=== PATIENT | female | born 1970 | race Caucasian/White ===

== ENCOUNTER 2023-02-23 05:06 | Emergency (ER) | payer OTHER ==
[~2023-02-23] VITALS: Ht 167.6 cm; Wt 72.6 kg
[2023-02-23 05:54] VITALS: BP_SYST 126; PULSE 82; RESP 19; TEMP 97.4; O2SAT 100
[2023-02-23 07:06] LABS: BASOPHILS # (AUTO) 0.1 K/uL (0.0-0.2); BASOPHILS % (AUTO) 1.1 % (0.0-2.0); EOSINOPHILS # (AUTO) 0.2 K/uL (0.0-0.4); HEMOGLOBIN 12.4 g/dL (12.0-16.0); LYMPHOCYTES # (AUTO) 1.7 K/uL (1.0-5.5); LYMPHOCYTES % (AUTO) 29.6 % (20.5-51.5); MEAN CORPUSCULAR HEMOGLOBIN 30 pg (27-31); MEAN CORPUSCULAR HGB CONC 33 % (32-36); MEAN CORPUSCULAR VOLUME 91 fL (79.0-98.0); MONOCYTES # (AUTO) 0.5 K/uL (0.0-1.0); MONOCYTES % (AUTO) 7.8 % (1.7-9.3); NEUTROPHILS # (AUTO) 3.4 K/uL (1.8-7.7); NEUTROPHILS % (AUTO) 58.5 % (40.0-70.0); PLATELET COUNT (AUTO) 301 K/uL (130-430); RED BLOOD CELL COUNT(AUTO) 4.19 MIL/uL (4.2-6.2); RED CELL DISTRIBUTION WIDTH 14.5 % (9.0-15.0); WHITE BLOOD COUNT (AUTO) 5.8 K/uL (4.8-10.8)
[2023-02-23 07:11] LABS: CALCIUM 8.2 mg/dL (8.4-11.0); CREATININE 0.87 mg/dL (0.55-1.30); POTASSIUM 4.3 mmol/L (3.5-5.1)
[2023-02-23 07:15] LABS: ALBUMIN 3.1 g/dL (3.4-4.8); TOTAL BILIRUBIN 0.2 mg/dL (0.0-1.0); TOTAL PROTEIN, SERUM 6.6 g/dL (6.4-8.3)
[2023-02-23 07:38] LABS: BILIRUBIN,URINE NEGATIVE (NEGATIVE); CLARITY/URINE Clear (CLEAR); COLOR,URINE YELLOW (YELLOW); GLUCOSE,URINE NEGATIVE (NEGATIVE); KETONES,URINE NEGATIVE (NEGATIVE); LEUKOCYTE ESTERASE ,URINE NEGATIVE (NEGATIVE); NITRITE, URINE NEGATIVE (NEGATIVE); PROTEIN URINE NEGATIVE (NEGATIVE); UROBILINOGEN,URINE 0.2 (0.2-1.0)
[2023-02-23 07:42] LABS: BLOOD, URINE TRACE (NEGATIVE)
[2023-02-23 08:00] LABS: BACTERIA,URINE RARE /HPF (None Seen); RBC,URINE 0-3 /HPF (0-3); WBC,URINE NONE SEEN /HPF (0-3)
[2023-02-23] MEDS ORDERED: TRAM50TA2 PO (10:07)
[2023-02-23] MEDS ORDERED: IBUP-1969 PO (10:07)
[2023-02-23 10:25] VITALS: BP_SYST 130; PULSE 81; RESP 18; TEMP 97.5; O2SAT 100
== END 2023-02-23 10:27 | disposition home or self-care (01) ==
LOC: SED 05:06
DX: S80.11XA Contusion of right lower leg, initial encounter (principal); S80.12XA Contusion of left lower leg, initial encounter; M79.671 Pain in right foot; R10.31 Right lower quadrant pain; Z79.899 Other long term (current) drug therapy; W19.XXXA Unspecified fall, initial encounter; Y93.89 Activity, other specified; Y92.89 Other specified places as the place of occurrence of the external cause; Y99.8 Other external cause status
CPT/HCPCS: 36415; 73590-TC; 76376; 80053; 81000; 82150; 83690; 85025; 99284

== ENCOUNTER 2023-03-19 20:55 | Emergency (ER) | payer OTHER ==
[~2023-03-19] VITALS: Ht 167.6 cm; Wt 72.6 kg
[~2023-03-19 20:55] MED LIST: IBUP-1969 PO; TRAM50TA2 PO
[2023-03-19 21:11] VITALS: BP_SYST 126; PULSE 100; RESP 20; TEMP 97.4; O2SAT 100
[2023-03-19] MEDS ORDERED: VANCOMYCIN HCL 1,000 MG in NS 250 ML IV ONE (22:15)
[2023-03-19] MEDS ORDERED: VANCOMYCIN HCL 1000 MG/VIAL IV ONE (22:20)
[2023-03-20] MEDS ORDERED: CEPH-548 PO ×2 (00:57→00:58)
[2023-03-20] MEDS ORDERED: SULF1TAB48 PO ×2 (00:57→00:58)
[2023-03-20 01:01] VITALS: BP_SYST 118; PULSE 86; RESP 18; TEMP 97.4; O2SAT 100
[2023-03-20] MEDS ORDERED: NAPR-1172 PO (01:03)
== END 2023-03-20 01:01 | disposition home or self-care (01) ==
LOC: SED 20:55
DX: L02.416 Cutaneous abscess of left lower limb (principal); L03.116 Cellulitis of left lower limb; Z79.899 Other long term (current) drug therapy
CPT/HCPCS: 99284; 96365; 10060; 96366; 87040; 36415; J3370

== ENCOUNTER 2023-03-21 22:27 | Emergency (ER) | payer OTHER ==
[~2023-03-21] VITALS: Ht 167.6 cm; Wt 72.6 kg
[~2023-03-21 22:27] MED LIST changes: +CEPH-548 PO; +NAPR-1172 PO; +SULF1TAB48 PO
[2023-03-21 22:31] VITALS: BP_SYST 116; PULSE 85; RESP 16; TEMP 97.1; O2SAT 99
[2023-03-21] MEDS ORDERED: KETOROLAC TROMETHAMINE 60 MG/2 ML VIAL IM ONE (23:00)
[2023-03-21] MEDS ORDERED: LIDOCAINE 1%, 20 ML MDV 20 ML ONE (23:42)
[2023-03-21] MEDS ORDERED: LIDOCAINE/EPI MPF 1%1:200000 30 ML VIAL INJ ONE (23:45)
[2023-03-22] MEDS ORDERED: CEPH250C PO (00:57)
[2023-03-22] MEDS ORDERED: SULF1TAB48 PO (00:58)
[2023-03-22 01:10] VITALS: BP_SYST 118; PULSE 82; RESP 16; TEMP 97.5; O2SAT 99
== END 2023-03-22 01:10 | disposition home or self-care (01) ==
LOC: SED 22:27
DX: Z48.00 Encounter for change or removal of nonsurgical wound dressing (principal); Z79.899 Other long term (current) drug therapy
CPT/HCPCS: 99283; 96372; J1885; J2001

== ENCOUNTER 2023-03-26 00:25 | Emergency (ER) | payer OTHER ==
[~2023-03-26] VITALS: Ht 167.6 cm; Wt 72.6 kg
[~2023-03-26 00:25] MED LIST changes: +CEPH250C PO
[2023-03-26 00:36] VITALS: BP_SYST 140; PULSE 100; RESP 18; TEMP 97.4; O2SAT 98
[2023-03-26 01:21] VITALS: BP_SYST 120; PULSE 78; RESP 18; TEMP 97.8; O2SAT 97
== END 2023-03-26 01:17 | disposition home or self-care (01) ==
LOC: SED 00:25
DX: S71.102A Unspecified open wound, left thigh, initial encounter (principal); Z79.899 Other long term (current) drug therapy; X58.XXXA Exposure to other specified factors, initial encounter; Y93.89 Activity, other specified; Y92.89 Other specified places as the place of occurrence of the external cause; Y99.8 Other external cause status
CPT/HCPCS: 99281

== ENCOUNTER 2023-09-18 22:01 | Emergency (ER) | payer MEDICAID, OTHER ==
[~2023-09-18] VITALS: Ht 165.1 cm; Wt 79.4 kg
[2023-09-18 22:25] VITALS: BP_SYST 121; PULSE 90; RESP 16; TEMP 97.9; O2SAT 97
[2023-09-19] MEDS ORDERED: NEO/3.5O OP (00:21)
[2023-09-19 00:32] VITALS: BP_SYST 120; PULSE 86; RESP 16; TEMP 97.9; O2SAT 99
== END 2023-09-19 00:32 | disposition home or self-care (01) ==
LOC: SED 22:01
DX: S83.91XA Sprain of unspecified site of right knee, initial encounter (principal); S93.602A Unspecified sprain of left foot, initial encounter; S93.509A Unspecified sprain of unspecified toe(s), initial encounter; H00.016 Hordeolum externum left eye, unspecified eyelid; F31.9 Bipolar disorder, unspecified; F41.9 Anxiety disorder, unspecified; W18.39XA Other fall on same level, initial encounter; Y93.89 Activity, other specified; Y92.89 Other specified places as the place of occurrence of the external cause; Y99.8 Other external cause status
CPT/HCPCS: 73560; 99284

== ENCOUNTER 2023-10-22 15:40 | Emergency (ER) | payer MEDICAID ==
[~2023-10-22] VITALS: Ht 165.1 cm; Wt 86.6 kg
[~2023-10-22 15:40] MED LIST changes: +NEO/3.5O OP
[2023-10-22 15:47] VITALS: BP_SYST 132; PULSE 118; RESP 18; TEMP 98.3; O2SAT 98
[2023-10-22] MEDS: TETRACAINE HCL/PF 0.5% OPHTHALMIC DROPS 4 ML OP ONE (16:47)
[2023-10-22] MEDS ORDERED: IBUP-1971 PO (18:20)
[2023-10-22] MEDS ORDERED: OFLO5DRO6 EACH EYE (18:20)
[2023-10-22 19:06] VITALS: BP_SYST 132; PULSE 118; RESP 18; TEMP 98.3; O2SAT 98
== END 2023-10-22 19:06 | disposition home or self-care (01) ==
LOC: SED 15:40
DX: H10.211 Acute toxic conjunctivitis, right eye (principal); E78.00 Pure hypercholesterolemia, unspecified; F17.210 Nicotine dependence, cigarettes, uncomplicated; Z79.899 Other long term (current) drug therapy
CPT/HCPCS: 99283

== ENCOUNTER 2024-03-19 06:32 | Day surgery (SDC) | payer MEDICAID ==
[~2024-03-19] VITALS: Ht 167.6 cm; Wt 86.2 kg
[~2024-03-19 06:32] MED LIST changes: +IBUP-1971 PO; +NITR-85 PO; +OFLO5DRO6 EACH EYE; +ONDA-8 TL
[2024-03-19] MEDS ORDERED: SIMETHICONE 40 MG/0.6 ML ML ONE ×2 (07:11→07:39)
[2024-03-19] MEDS ORDERED: MIDAZOLAM HCL 5 MG/5 ML VIAL ONE ×3 (07:11→08:08)
[2024-03-19] MEDS ORDERED: MEPERIDINE 100 MG INJ. 100 MG/ML VIAL ONE ×3 (07:11→08:08)
[2024-03-19] MEDS ORDERED: DIPHENHYDRAMINE INJ 50 MG/ML VIAL ONE (08:08)
[2024-03-19 13:25] VITALS: BP_SYST 125; PULSE 65; RESP 20; TEMP 97.9; O2SAT 100
== END 2024-03-19 09:55 | disposition home or self-care (01) ==
LOC: SDS 06:32 → SMU 06:34 → SDS 09:55
PROVIDERS: ATTEND Internal Medicine
DX: K59.00 Constipation, unspecified (principal); D12.2 Benign neoplasm of ascending colon; D12.3 Benign neoplasm of transverse colon; D12.4 Benign neoplasm of descending colon; D12.0 Benign neoplasm of cecum; K57.30 Diverticulosis of large intestine without perforation or abscess without bleeding; K64.8 Other hemorrhoids; E11.9 Type 2 diabetes mellitus without complications; E78.00 Pure hypercholesterolemia, unspecified; F41.9 Anxiety disorder, unspecified; F32.A Depression, unspecified; M19.90 Unspecified osteoarthritis, unspecified site; F17.210 Nicotine dependence, cigarettes, uncomplicated; Z98.51 Tubal ligation status; Z79.899 Other long term (current) drug therapy; Z80.0 Family history of malignant neoplasm of digestive organs
CPT/HCPCS: 45385; 88305; 99153; 99152; G0378; J1200; J2250; J2175